=== PATIENT | female | born 2000 | race Caucasian/White ===

== ENCOUNTER 2018-05-26 20:35 | Emergency (ER) | payer OTHER, SELFPAY | END 2018-05-26 21:34 | disposition home or self-care (01) | LOC: ERS 20:35 | DX: Z04.3 Encounter for examination and observation following other accident (principal); W19.XXXA Unspecified fall, initial encounter; Z3A.17 17 weeks gestation of pregnancy ==

== ENCOUNTER 2018-09-02 14:14 | Day surgery (SDC) | payer BC, OTHER ==
[2018-09-02 15:00] VITALS: BP 119/74; TEMP 98.5; BMI 48.4
--- NOTE | 2018-09-02 15:05 | PDOC.EVN ---
Event Note - Event Note Event Note: L&D: History & Physical Time: 1500 Location: Triage age: 18 yo CC: Here for LOF Patient of the [facility] G1 at 32 and 3 weeks...possible leaking X 1 week. Has been on/off 1 week. No CTX. No gush. No sxs. No VB Review of Systems: completed and as above. HX: Treated Chlamydia with neg RYDER Past Med HX: intellectual disability, GDM...no meds Past OB: 1 HR on record 139....full records not here Surgerical HX: none Allergies: none Social: negative tobacco, ETOH, drugs PHYSICAL: BP 119/82, P80s, afebrile, RR 18 unlabored General NAD HEENT neg Skin: negative rashes CCTAB RRR Gravid, soft No homans Pelvic...pending Extremities: negative for pathology NST: 160s, mod variability, no decels. TOCO no ctx Interventions: VP3 GC and Chl SSE NST Assessment/Plan: 18 yo G1 at 32 weeks 3 days with possible prolonged LOF Plan: VP3 GC and Chl SSE NST IF pos for LOF...will need: admit, ABX for latency (amp and erythro IV, then amox and erythro x 5 days; or amp and zmax if erythro not available), sono for EFW/presentation, admit labs, steroids. Patient first eval by Katelyn Hardin, seen by me for SSE...with Katelyn Hardin
--- NOTE | 2018-09-02 15:22 | PDOC.EVN ---
Event Note - Event Note Event Note: SSE performed Time: MDs: Wilfred/Hector No evidence LOF on exam, no LOF with valsalva. Perineum dry. Cough test neg. No VB collected prior GC collected VP3 collected Await test results
[2018-09-02 15:45] LABS: Amnisure Test No Membranes Rupture (No Rupture)
[2018-09-02 15:46] LABS: Amnisure Internal Control QC ACCEPTABLE (ACCEPTABLE)
--- NOTE | 2018-09-02 16:13 | PDOC.EVN ---
Event Note - Event Note Event Note: LABS: Amnsiure is negative VP3 and GC/Chl Will not return today OK for clinic follow up, in 2 days No evidence of LOF or PTL
[2018-09-02 16:51] LABS: Bilirubin Negative (Negative); Blood, Urine Negative (Negative); Clarity TURBID (Clear); Glucose, Urine (Dipstick) Negative (Negative); Leukocyte Small (Negative); Nitrite Negative (Negative); Protein, Urine (Dipstick) 100 mg/dL (Neg-Trace); Specific Gravity, Urine 1.018 (1.002-1.036)
[2018-09-02 16:54] LABS: Bacteria/HPF 4+ HPF (None Seen); Pathc Cast-AUWi Flag 2.04 (0-2.49)
[2018-09-02 17:06] LABS: RBC/HPF 0-3 HPF (0-3)
[2018-09-02 17:08] LABS: Hyaline Casts/LPF 0-3 HYALINE CAST LPF (0-3 Hyaline)
[2018-09-02 17:10] LABS: Urine Culture Reflex No No
--- NOTE | 2018-09-02 17:38 | PDOC.EVN ---
Event Note - Event Note Event Note: Lab check preDSCH: VP3 was pos for BV...will RX with oral flagyl 500mg po BID x 7 days
[2018-09-05 00:46] LABS: Chlamydia by PCR Not Detected (NotDetected); GC by PCR Not Detected (NotDetected)
== END 2018-09-02 16:43 | disposition home or self-care (01) ==
LOC: L&D/OP 14:14 → EDSTATUS 14:22 → L&D/OP 16:43
PROVIDERS: ATTEND Obstetrics & Gynecology
DX: O99.89 Other specified diseases and conditions complicating pregnancy, childbirth and the puerperium (principal); N89.8 Other specified noninflammatory disorders of vagina; O24.419 Gestational diabetes mellitus in pregnancy, unspecified control; O23.593 Infection of other part of genital tract in pregnancy, third trimester; B96.89 Other specified bacterial agents as the cause of diseases classified elsewhere; Z79.899 Other long term (current) drug therapy; O99.343 Other mental disorders complicating pregnancy, third trimester; F79 Unspecified intellectual disabilities; Z88.8 Allergy status to other drugs, medicaments and biological substances; Z3A.32 32 weeks gestation of pregnancy
CPT/HCPCS: 81001; 84112; 87480; 87491; 87510; 87591; 87660

== ENCOUNTER 2018-10-05 23:14 | Day surgery (SDC) | payer BC, OTHER ==
[2018-10-05 23:53] VITALS: BP 105/57; TEMP 97.9; BMI 50.3
--- NOTE | 2018-10-06 00:48 | PDOC.EVN ---
Event Note - Event Note Event Note: Faculty Note NILAM Stephenson Time: 45; 10/06/18 Location: [facility] CC: pelvic presssure HPI: 20 yo G1 at 37 weeks 2 days with vaginal pressure. No CTX, no VB, no LOF. Good FM. Review of systems completed and as per HPI; also noted with past HX slight MR Otherwise no significant HX Vitals: afebrile and normotensive CX: FT NST reactive DX: Discomforts of preg Please see full resident note: I have seen and evaluated the patient.
--- NOTE | 2018-10-06 00:49 | PDOC.LDHP ---
Labor and Delivery H&P Chief complaint: other (pelvic pain) HPI: 18 yo G1 at 37.2 by 10.5 wk sono her for pelvic pain. Has had for the past two weeks but worsened today stating "because baby's head dropped." Patient's history is complicated by mild mental retardation, however patient is able to understand situation and denies VB/LOF or foul smelling discharge. Endorses FM. She denies recent sexual activity. Pelvic pain is focal at pubic symphysis, worse with movement and getting up. No fevers, or rashes. Current gestational age (weeks): 37 (37.2) Due date: 10/21/18 Grav: 1 Current complications: other (glucose intolernace) Current medications: pre- vitamins Allergies/Adverse Reactions: Allergies Allergy/AdvReac Type Severity Reaction Status Date / Time ADHD PATCH Allergy Severe Rash Uncoded 10/05/18 23:55 Social history: none - Physical Exam Vital signs reviewed and normal: yes General: NAD, resting Heart: RRR Lungs: CTAB Abdomen: other (mildly tender over pubic area inguinal pain reproduced with leg bend) FHT: category 1 (reactive, reassuring uterine irritability) - Vaginal Exam cm dilated: 1 Effacement: 0% Station: -3 - OB Labs Blood type: A RH: positive Antibody Screen: negative HIV: negative RPR: unknown HEPSAg: unknown 1 hour GCT: unknown GBS: unknown Rubella: immune - Plan Plan: other (discharge to home) -: 18 yo G1 at 37.2 by 1T sono here for pelvic pain #discomfort during -likely pelvic girdle pain with 3T -FHT: reactive, reassuring w/ uterine irritability -SVE: /high -gave labor precautions, hydrate well -continue routine care at [facility] with Dr. Velasquez #sIUP, term -continue routine care discussed w/ Dr. Young
== END 2018-10-06 01:03 | disposition home or self-care (01) ==
LOC: L&D/OP 23:14
PROVIDERS: ATTEND Student in an Organized Health Care Education/Training Program
DX: O26.893 Other specified pregnancy related conditions, third trimester (principal); R10.2 Pelvic and perineal pain; O99.343 Other mental disorders complicating pregnancy, third trimester; F70 Mild intellectual disabilities; O99.283 Endocrine, nutritional and metabolic diseases complicating pregnancy, third trimester; E74.39 Other disorders of intestinal carbohydrate absorption; Z79.899 Other long term (current) drug therapy; Z88.8 Allergy status to other drugs, medicaments and biological substances; Z3A.37 37 weeks gestation of pregnancy
CPT/HCPCS: 99282

== ENCOUNTER 2018-10-21 21:00 | Inpatient (IN) | payer BC, OTHER ==
[~2018-10-21 21:00] MED LIST: Bupivacaine/Epinephrine 0.25% 30 ML VIAL ONE
--- NOTE | 2018-10-21 21:47 | PDOC.LDHP ---
Labor and Delivery H&P Chief complaint: scheduled induction HPI: 18 y/o @ 39.3wks by 1T sono not c/w LMP presents for scheduled induction Pt reports feeling well, taking her PNV and ASA daily. She is feeling baby move and denies ctx, LOF, abdominal/pelvic pain, VB/VD, or headache. Her glucose checks have been well controlled recently. Current gestational age (weeks): 39 (.3) Due date: 10/25/18 Dating criteria: first trimester ultrasound Grav: 1 Para: 0 OB History Details: moderate MR, morbid obesity, chlamydia-treated, E. coli UTI- treated, A1GDM Current complications: gestational diabetes Abnormal US findings: No Past Medical History: intellectual disability Current medications: pre- vitamins Previous surgical history: none Allergies/Adverse Reactions: Allergies Allergy/AdvReac Type Severity Reaction Status Date / Time ADHD PATCH Allergy Mild Rash Uncoded 10/21/18 22:12 Social history: none - Physical Exam Vital signs reviewed and normal: yes General: NAD Heart: RRR Lungs: nonlabored breathing Abdomen: NTTP Extremeties: trace edema FHT: category 1, variability present (baseline 150, accerlations, no decels) [place] contractions every: 3mins - Vaginal Exam cm dilated: 1 Effacement: 50% Station: -3 - OB Labs Blood type: A RH: positive Antibody Screen: negative HIV: negative RPR: negative HEPSAg: negative 1 hour GCT: positive 3 hour GTT: abnormal GBS: negative Urine drug screen: not done Rubella: immune Additional Labs: H/H: , HbA1c 5.7% - Assessment L&D Assessment: medically indicated induction - Plan Plan: admit to L&D, cervical ripening, labor augmentation if indicated -: Term - GBS negative, epidural desired - downs score of 3 - place cytotec when ctx adequately spaced - repeat cervical exam in 4 hours Addendum - Attending - Attending Attestation Date/Time: 10/22/18 0737 I personally evaluated the patient and discussed the management with Dr. Chow on 10/21/2018 I agree with the History, Examination, Assessment and Plan documented above with any addition or exceptions noted below - 18 yo female @39.3 weeks presents for elective induction of labor. Denies any ctx, LOF. (+) FM. Afebrile VSS. SVE 50%/-3. Category 1 FHTs. [place]- occ ctx. A/P: 1) IUP @39.3 weeks for elective induction of labor. Cytotec placed. Category 1 FHTs. Recheck in 4 hours. 2) Glucose intolerance - all BG within normal during . 3) Intellectual disability
[2018-10-21 22:07] VITALS: BMI 49.7
[2018-10-21] MEDS ORDERED: Ibuprofen 800 MG TAB PO PRN (22:24)
[2018-10-21] MEDS ORDERED: NS / Oxytocin 40 units/1000ml 1,000 ML IV PRN (22:24)
[2018-10-21] MEDS ORDERED: Ondansetron PF 4 MG/2 ML Vial IVP PRN (22:24)
[2018-10-21] MEDS ORDERED: Diphenoxylate HCl/Atropine Tablet PO PRN (22:24)
[2018-10-21] MEDS ORDERED: Methylergonovine 0.2 MG/ML VIAL IM PRN (22:24)
[2018-10-21] MEDS ORDERED: Misoprostol 200 MCG TAB PR PRN (22:24)
[2018-10-21] MEDS ORDERED: Lidocaine 1% (PF) 30 ML VIAL SC PRN (22:24)
[2018-10-21] MEDS ORDERED: Promethazine HCl 25 MG/ML VIAL IM PRN (22:24)
[2018-10-21] MEDS ORDERED: Carboprost 250 MCG/ML AMP IM PRN (22:24)
[2018-10-21] MEDS: Misoprostol 100 MCG TAB VAG SCH (23:04)
[2018-10-21 23:24] LABS: Hemoglobin 10.2 g/dL (12.0-16.0); Mean Corpuscular HGB CONC 31.3 g/dL (32.0-36.0); Mean Corpuscular Hemoglobin 22.8 pg (25.0-35.0); Mean Corpuscular Volume 72.9 fL (78.0-98.0); Mean Platelet Volume 8.4 fL (7.4-10.4); Platelet Count 364 thou/uL (130-400); RBC Distribution Width 14.4 % (11.5-14.5); Red Blood Cell (RBC) Count 4.45 mill/uL (4.00-5.20); White Blood Cell (WBC) Count 12.7 thou/uL (4.8-10.8)
[2018-10-21] MEDS: Lactated Ringer's 1,000 ML IV SCH (23:50)
[2018-10-22 00:10] LABS: Hep B Surf Ag Non-Reactive S/CO (NonReactive); Syphilis Antibody Nonreactive (Nonreactive); Syphilis Antibody Index 0.03 S/CO (<1.00 Non-Reactive)
--- NOTE | 2018-10-22 03:27 | PDOC.LDPN ---
Labor & Delivery Progress Note - Subjective Subjective: comfortable - Objective Vital signs reviewed and normal: yes General: NAD, resting Uterine fundus: non tender Dilation: 1 Effacement: 50% Station: -3 FHT: category 1 (baseline 140, accels present, no decels), variability present [place] contractions every: 2mins - Assessment (1) Current Visit: Yes Status: Acute Plan: continue plan of care -: Term - GBS negative, epidural desired - downs score of 3 - place cytotec when ctx adequately spaced - repeat cervical exam in 4 hours
[2018-10-22] MEDS: Lactated Ringer's 1,000 ML IV SCH ×3 (04:04→23:24)
[2018-10-22] MEDS: Misoprostol 100 MCG TAB VAG SCH (04:04)
--- NOTE | 2018-10-22 08:04 | PDOC.LDPN ---
Labor & Delivery Progress Note - Subjective Subjective: other (complains of back pain, denies feeling contractions) - Objective Vital signs reviewed and normal: yes General: resting Dilation: 1cm Effacement: 50% Station: -3 FHT: category 1, variability present [place] contractions every: not on monitor 2/2 pt movment and positioning Plan: continue plan of care -: Term A- Pt is hungry and desires breakfast. GBS negative, epidural desired. downs score of 3. s/p cytotec x2 P- Will allow pt to eat breakfast. Place third cytotec 2 hours after breakfast - repeat cervical exam in ~ 4 hours Addendum - Attending - Attending Attestation Date/Time: 10/22/18 8971 I personally evaluated the patient and discussed the management with Dr. Dent. I agree with the History, Examination, Assessment and Plan documented above with any addition or exceptions noted below. This is an elective induction in patient whose obstetric course is complicated by obesity and limited cognitive and emotional development. She has been followed by MFM. records reviewed.
--- NOTE | 2018-10-22 11:22 | PDOC.LDPN ---
Labor & Delivery Progress Note - Subjective Subjective: comfortable - Objective Vital signs reviewed and normal: yes General: NAD, resting Dilation: 1 Effacement: 50% Station: -3 FHT: category 1 -: Term - GBS neg, wants epidural, s/p cytotec x2 - SROM while walking around the unit @ 1030 - Starting Pitocin for augmentation - no change to cervical exam Addendum - Attending - Attending Attestation Date/Time: 10/22/18 [id number] I discussed the management with Dr. Hardin this morning. I agree with the History, Examination, Assessment and Plan documented above with any addition or exceptions noted below. SROM. Pitocin is being initiated for induction.
[2018-10-22] MEDS ORDERED: NS w/ Oxytocin 10 units 500 ML IV SCH (11:30)
--- NOTE | 2018-10-22 15:26 | PDOC.LDPN ---
Labor & Delivery Progress Note - Subjective Subjective: comfortable - Objective Vital signs reviewed and normal: yes General: NAD, resting Dilation: 1 Effacement: 90% Station: -1 FHT: variable decelerations (x2), variability present Plan: continue plan of care -: Term A- GBS neg, wants epidural, s/p cytotec x2, now on pit. Showing 2 variable decells otherwise strip is reassuring. SROM while walking around the unit @ 1030 P- re-positioning, use of birthing ball. continue monitoring and recheck in 4 hours
--- NOTE | 2018-10-22 16:59 | PDOC.LDPN ---
Labor & Delivery Progress Note - Subjective Subjective: comfortable - Objective Vital signs reviewed and normal: yes General: NAD -: Term - GBS neg, wants epidural, s/p cytotec x2 - SROM while walking around the unit @ 1030 - Pit at 12, cxns q 2-3, cat 2 mild variability - internal monitors placed 1645 - AROM forebag 1645, /-1 Addendum - Attending - Attending Attestation Date/Time: 10/23/18 3072 I personally evaluated the patient and discussed the management with Dr. Hardin I agree with the History, Examination, Assessment and Plan documented above with any addition or exceptions noted below. I supervised and assisted with internal monitor placement.
--- NOTE | 2018-10-22 21:30 | PDOC.LDPN ---
Labor & Delivery Progress Note - Subjective Subjective: painful contractions - Objective General: NAD, breathing through contractions Uterine fundus: non tender Dilation: 3 Effacement: 50% Station: -2 FHT: category 1 (baseline 140, moderate variability, no decels, accels present) [place] contractions every: 3-4min - Assessment (1) Current Visit: Yes Status: Acute Plan: continue plan of care -: Term - GBS neg, wants epidural, s/p cytotec x2 - SROM while walking around the unit @ 1030 - Pitocin, cxns q 2-3, cat 2 mild variability - internal monitors placed 1645 - AROM forebag 1645, /-1 - repeat exam q4hr Addendum - Attending - Attending Attestation Date/Time: 10/23/18 0013 I personally evaluated the patient and discussed the management with Dr. Chow. I agree with the History, Examination, Assessment and Plan documented above with any addition or exceptions noted below.
[2018-10-22] MEDS ORDERED: Fentanyl 4 mcg/Bup 0.1% Cadd 100 ML ONE (23:12)
[2018-10-23] MEDS ORDERED: Naloxone HCl 0.4 mg/ml Vial IVP PRN ×2 (00:24)
[2018-10-23] MEDS ORDERED: Promethazine HCl 25 MG/ML VIAL IM PRN (00:24)
[2018-10-23] MEDS ORDERED: ePHEDrine/0.9% NaCl/PF SYRINGE 50 mg/10 ml SLOW IVP PRN (00:24)
[2018-10-23] MEDS ORDERED: diphenhydrAMINE 50 MG/ML VIAL IVP PRN (00:24)
[2018-10-23] MEDS ORDERED: Eucerin (Mineral Oil/Petrolatum,White) 30 gm Jar TOP PRN (00:24)
[2018-10-23] MEDS ORDERED: Lactated Ringer's 500 ML IV PRN (00:24)
[2018-10-23] MEDS ORDERED: Ondansetron PF 4 MG/2 ML Vial IVP PRN (00:24)
[2018-10-23] MEDS ORDERED: Communication Order-Pharmacy FS SCH (00:30)
[2018-10-23] MEDS ORDERED: Fentanyl 4 mcg/Bupivacaine 0.1% Cassette 100 ML EPIDURAL SCH (00:30)
--- NOTE | 2018-10-23 01:33 | PDOC.LDPN ---
Labor & Delivery Progress Note - Subjective Subjective: comfortable - Objective Vital signs reviewed and normal: yes General: NAD Uterine fundus: non tender Dilation: 4 Effacement: 75% Station: -2 FHT: category 1 (baseline 150, mod variabilty, accels, no decel ) [place] contractions every: 3mins - Assessment (1) Current Visit: Yes Status: Acute Plan: continue plan of care -: Term - GBS neg, epidural placed, s/p cytotec x2 - SROM while walking around the unit @ 1030 - Pitocin, cxns q 2-3, cat 1 - internal monitors placed 1645 - AROM forebag 1645, /-1 - repeat exam q4hr Addendum - Attending - Attending Attestation Date/Time: 10/23/18 0724 I personally evaluated the patient and discussed the management with Dr. Chow. I agree with the History, Examination, Assessment and Plan documented above with any addition or exceptions noted below.
[2018-10-23] MEDS: Lactated Ringer's 1,000 ML IV SCH (02:53)
--- NOTE | 2018-10-23 05:37 | PDOC.LDPN ---
Labor & Delivery Progress Note - Subjective Subjective: comfortable - Objective Vital signs reviewed and normal: yes General: NAD Uterine fundus: non tender Dilation: 5 Effacement: 90% Station: -2 FHT: category 1 (baseline 150, accels, no decels), variability present [place] contractions every: 2-3 mins - Assessment (1) Current Visit: Yes Status: Acute Plan: continue plan of care -: Term - GBS neg, epidural placed, s/p cytotec x2 - SROM while walking around the unit @ 1030 - Pitocin 12, cxns q 2-3, cat 1 - internal monitors placed 1645 - AROM forebag 1645, /-1 - repeat exam q4hr Addendum - Attending - Attending Attestation Date/Time: 10/23/18 1868 I personally evaluated the patient and discussed the management with Dr. Chow. I agree with the History, Examination, Assessment and Plan documented above with any addition or exceptions noted below.
[2018-10-23] MEDS ORDERED: Fentanyl 4 mcg/Bup 0.1% Cadd 100 ML ONE (07:32)
[2018-10-23] MEDS ORDERED: Fentanyl 100 MCG/2 ML VIAL ONE (10:12)
[2018-10-23] MEDS ORDERED: Bupivacaine 0.25% HCL 30 ML VIAL ONE (10:12)
[2018-10-23] MEDS ORDERED: Bupivacaine 0.5% 10 ML VIAL ONE (10:16)
[2018-10-23] MEDS ORDERED: PHENYLEPHRINE-NS 100 MCG/ML 10 ML SYRINGE ONE (10:49)
[2018-10-23] MEDS ORDERED: NS / Oxytocin 40 units/1000ml 1,000 ML IV SCH (13:58)
[2018-10-23] MEDS ORDERED: Bisacodyl 10 MG SUPP PR PRN (13:58)
[2018-10-23] MEDS ORDERED: Milk Of Magnesia 30 ML UDCUP PO PRN (13:58)
[2018-10-23] MEDS ORDERED: Adacel (T-DAP) 0.5 ML SYRINGE IM ONE (13:58)
[2018-10-23] MEDS: Ampicillin 2 GM in Sodium Chloride 0.9% 100 ML IVPB SCH ×3 (14:57→21:53)
[2018-10-23] MEDS: Ferrous Sulfate 325 MG TAB PO SCH (17:41)
[2018-10-23] MEDS: Acetaminophen 325 MG TAB PO PRN (18:39)
--- NOTE | 2018-10-23 19:07 | OP ---
DATE OF PROCEDURE: 10/23/2018 RESIDENT PHYSICIAN: Dr. Rima Velasquez. PREOPERATIVE DIAGNOSES: 1. Elective induction of labor. 2. Maternal obesity. 3. Persistent category II strip (persistent tachycardia). 4. Maternal tachycardia. 5. Chorioamnionitis. 6. Poor maternal effort, maternal exhaustion. POSTOPERATIVE DIAGNOSES: 1. Term intrauterine , delivered. 2. Maternal obesity. 3. Persistent category II strip (persistent tachycardia). 4. Maternal tachycardia. 5. Chorioamnionitis. 6. Poor maternal effort, maternal exhaustion. 7. Shoulder dystocia, requiring suprapubic pressure, Sofya maneuver, posterior shoulder delivery. 8. Vacuum-assisted vaginal delivery. 9. 4th degree laceration, status post repair. 10. Bilateral vaginal lacerations, status post repair. 11. hemorrhage. INDICATIONS FOR PROCEDURE: This is a 18-year-old, G1, P0, at 39 and 3 weeks, who presented for elective induction of labor on 10/21/2018. The patient had rupture of membranes at approximately 10 a.m. on 10/22/2018. Clear fluid was noted at that time. During this time, strip remained category I. Due to maternal habitus, there was difficulty obtaining heart tones via external monitors. A decision was made to start Pitocin and place internal monitors to better detect contractions and heart tones. This was done at approximately 5 p.m. on 10/22/2018. The patient did well during the course of her labor. However, at approximately 8 a.m. on 10/23 , the patient was noted to be tachycardic and shortly thereafter the started to become tachycardic as well. Considering her risk factors for chorioamnitis and the emergence of maternal and tachycardia antibiotics for chorioamniitis ( Intraamniotic Infection) were ordered. At this point, station was 2+, and the patient was completely dilated and effaced. For approximately 1 to 1-1/2 hours, the patient attempted pushing, and she was able to progress the to the 3+ station. However, the patient reached a point of exhaustion and no longer had effective pushes. At that point, given the persistent tachycardia and maternal exhaustion, the decision was made to proceed with a vacuum-assisted vaginal delivery. The reasons for our recommendation to expedite delivery and risks of vacuum-assisted vaginal delivery were discussed with the patient to include cephalohematoma and possibility of shoulder dystocia. The patient and the patient's adoptive mother agreed to proceed with the vacuum assistance given the situation. The position was noted to be LEAH, and the vacuum was placed at which was felt to be the median flexion point. All maternal tissue was found to be free after application of the vacuum. Vacuum pressure was then applied to "yellow" while awaiting a contraction. With the next contraction the suction was raised to "green," 45 mL of water. Continuous traction was was applied in the usual fashion with steady progress while the patient was instructed to push. No pop-offs were noted until the very end after the delivery of the head, at which point, Dr. Murillo was able to apply downward pressure in an effort to relieve the anterior shoulder. However, shoulder dystocia was encountered. The patient was already in Sofya position, so suprapubic pressure was applied. When downward traction on the head was not successful, Dr. Murillo was able to relieve the posterior arm, and the rest of the body was delivered. left shoulder was anterior. Estimated total time of vacuum application was about 3 minutes. See nurse notes and immediate post delivery note. Estimated time of shoulder dystocia was about 1 minute. The cord gas was sent for analysis, and cord blood was sent for typing. The infant was handed to the mother and stimulated. It was then taken over to the nursery, where the supervisor tank storage was waiting and evaluated the infant. The was found to have Apgars of 8 and 9 at 1 and 5 minutes respectively. After delivery of the infant, the placenta was spontaneously delivered with gentle downward traction and was found to be intact with a three-vessel cord noted. The placenta was sent for pathology. As noted earlier, due to concern for chorioamnionitis, the patient was started on ampicillin and gentamicin. The nursery was notified of the chorioamnionitis diagnosis, and appropriate labs to include CBC and culture were obtained post delivery. Infant also was started on antibiotics. Upon inspection of the vagina, perineum and rectum, there was a 4th degree laceration noted. Digital rectal exam was performed to evaluate extend of rectal involvement. For the repair, anesthesia was called to re-dose her epidural, and Tea was taken to the OR. The tear was cleansed with betadyne and sterile saline. Prior to the 4th degree repair, a right-sided vaginal laceration was repaired to control active bleeding, 3-O vicryl was used in a running manner and 3-O chromic for two figure of eight sutures. Our attention turned to the anal/rectal repair. 3-0 Vicryl was used to reapproximate the rectal and anal mucosa in a running submucosal manner. The internal anal sphincter was then brought together using a 3-0 Vicryl in a running manner. After this was achieved , the external anal sphincter was identified with the help of Dr. Cartagena. The external anal sphincter with fascia was brought together at 12,3,6, and 9o clock positions. This was accomplished using 1-[address] At this point, we turned our attention to the bilateral vaginal lacerations. These were repaired with 3-O vicryl in a running fashion. The remaining perineal tear was then repaired in the usual fashion using a 3-0 Vicryl. The patient tolerated this procedure well. During the procedure, she was noted to have systolic blood pressures in the 80s. She was given ephedrine x2 as well as 2 L bolus of fluid, which bumped her pressures up to the 90s. However, with the amount of the estimated blood loss in the delivery adn that associated with the vaginal laceration, the patient was estimated to have a hemorrhage of 1250 mL. Since the blood pressure was not responding to fluids alone, a decision was made to type and cross 2 units of blood and transfuse the patient. A 4- to 6- hour postop H and H will be obtained to assess status. She will eventually go to for routine recovery/care. We will ensure that she has pain control for her 4th degree laceration and stool softeners to ensure that she has soft bowel movements. The infant went to nursery for routine recovery/care. The infant was noted to have a brachial plexus injury to the left arm and was also noted to have a cephalhematoma due to vacuum application. DRAINS: Olivier to gravity draining clear urine. ESTIMATED BLOOD LOSS: 1250 mL. COMPLICATIONS: Vacuum-assisted vaginal delivery, shoulder dystocia, 4th degree laceration, hemorrhage. Job ID: [id number] [facility]
[2018-10-23] MEDS: Ibuprofen 800 MG TAB PO SCH (21:25)
[2018-10-23] MEDS: Docusate Calcium (SURFAK) 240 MG CAP PO SCH (21:25)
[2018-10-23] MEDS: HYDROcodone/Acetaminophen 5/325 mg Tablet PO PRN (23:42)
[2018-10-24] MEDS: Ampicillin 2 GM in Sodium Chloride 0.9% 100 ML IVPB SCH ×2 (03:38→10:04)
[2018-10-24 03:54] LABS: #Basophils 0.1 thou/uL (0.0-0.2); #Eosinphils 0.2 thou/uL (0.0-0.7); #Lymphocytes 3.3 thou/uL (1.20-3.40); #Monocytes 1.5 thou/uL (0.11-0.59); %Basophils 0.4 % (0.0-1.0); %Eosinophils 0.9 % (0.0-10.0); %Lymphocytes 18.3 % (28.0-48.0); %Monocytes 8.3 % (0.0-4.0); %Neutrophils 72.1 % (31.0-61.0); Hemoglobin 8.1 g/dL (12.0-16.0); Mean Corpuscular HGB CONC 32.2 g/dL (32.0-36.0); Mean Corpuscular Hemoglobin 24.9 pg (25.0-35.0); Mean Corpuscular Volume 77.5 fL (78.0-98.0); Mean Platelet Volume 7.8 fL (7.4-10.4); Platelet Count 215 thou/uL (130-400); RBC Distribution Width 16.4 % (11.5-14.5); Red Blood Cell (RBC) Count 3.26 mill/uL (4.00-5.20); White Blood Cell (WBC) Count 18.1 thou/uL (4.8-10.8)
[2018-10-24] MEDS: HYDROcodone/Acetaminophen 5/325 mg Tablet PO PRN (03:59)
[2018-10-24] MEDS: Ibuprofen 800 MG TAB PO SCH ×3 (06:08→21:28)
--- NOTE | 2018-10-24 08:25 | PDOC.PP ---
Post Progress Note Post Day #: 1 Subjective: Pt states she feels well and that pain is much better than yesterday though she has residual back aches. Reports minimal bleeding, +flatus, no BM (no urge yet) , no ambulation. Olivier is in place. No complaints or concerns at this time. PO intake tolerated: yes Flatus: yes Ambulation: no Vital Signs (12 hours) Temp Pulse Pulse Resp BP BP Pulse Ox 10/24/18 04:00 98.1 F 94 20 102/52 L 95 10/23/18 23:40 98.2 F 95 18 103/58 L 10/23/18 21:17 99.0 F 98 18 101/55 L Weight Weight 123.377 kg - Physical Examination General: NAD Cardiovascular: no m/r/g Respiratory: clear to auscultation bilaterally, non-labored breathing Abdominal: + bowel sounds, no distention Neurological: no gross focal deficits Psychiatric: A&Ox3, normal affect Result Diagrams: 10/25/18 06:25 Additional Labs: Post Labs Blood Type A POSITIVE 10/22/18 01:25 Hep Bs Antigen Non-Reactive S/CO (NonReactive) 10/21/18 23:19 (1) care and examination Code(s): Z39.2 - ENCOUNTER FOR ROUTINE FOLLOW-UP Status: Acute (2) hemorrhage Code(s): O72.1 - OTHER IMMEDIATE HEMORRHAGE Status: Acute (3) Chorioamnionitis Code(s): O41.1290 - CHORIOAMNIONITIS, UNSP TRIMESTER, NOT APPLICABLE OR UNSP Status: Acute (4) Fourth degree laceration of perineum during delivery, Code(s): O70.3 - FOURTH DEGREE PERINEAL LACERATION DURING DELIVERY Status: Acute (5) Obesity Code(s): E66.9 - OBESITY, UNSPECIFIED Status: Acute - Assessment/Plan 18yo who delivered via vacuum assisted vaginal delivery at 0951 on 2018 at 39.5w EGA that was complicated by shoulder dystocia, 4th degree lac, and PPH Post A- Overall doing well. pt reports good pain control, has not ambulated yet, tolerating PO intake, no BM, +flatus, minimal bleeding, breast feeding/bottle feeding breast milk P- continue stool softeners -encourage ambulation as tolerated -monitor I/Os Anemia 2/2 PPH A- Hgb trend from 10.2-->8 and is s/p 2u PRBC. Pt is asymptomatic P- monitor symptoms of anemia -monitor daily H/H Intra-amniotic infection A- tachycardic in final 2-3 hours of labor, WBC 12-->18 P- continue amp and gent 4th degree lac A- good pain control as stated above, bleeding minimal P- will check rectal tone and sutures at rounds maternal obesity A- MD aware P- will in house counsel healthy diet -f/u pcp Addendum - Attending - Attending Attestation Date/Time: 10/24/18 6431 I personally evaluated the patient and discussed the management with Dr. Dent and Dr. Velasquez I agree with the History, Examination, Assessment and Plan documented above with any addition or exceptions noted below. 18 yo female s/p complicated VAVD at 39.5 wks on 10/23/18 at 0951 Patient doing well. Pain managed with PO meds. Positive flatus. No incontinence. Lochia appropriate. Voiding well. VS reviewed. Labs reviewed. NAD. Fundus firm. RRR. No murmur. CTAB. Rectal tone normal. No disruption of rectal mucosa. No evidence of dehiscence or infection. Hemrrhoid present. Nonthrombosed. s/p VAVD: Routine care. OASIS with 4th degree laceration: Repaired. No pp complications at this time. Hemorrhoid noted on exam today. Will follow up with MD at time of repair to re- evaluate to make sure present and not new. Unsure on exam today 2/2 patient discomfort if external vs internal. Nonthrombosed. Contine bowel regiment. No incontinence. Ok to d/c antibx. Add topical pain meds. Suspected IAI: Empirically treated due to ROM 24 hours, maternal and tachycardia. Patient with epidural and unable to evaluate for fundal tenderness during labor. Treated intrapartum with antibx and continued for 24 hours pp. No fever in pp period. Fundus nontender. Stop antibx. Placenta path pending but likely positive. [place] dystocia with brachial plexus injury: Improving. BMI 49: Encourage breast feeding and lifestyle modifications. PPH s/p 2 units pRBC: Asymptomatic. VSS. Still anemic on repeat. Will give IV iron to decrease chances of constipation. macrosomia Glucose intolerance: Do to other risk factors would follow up DM screening with PCP\ Mild intellectual disability: Unsure if NIPT done. Seen and followed up by MFM. Routine care. D/c Olivier and antibx. [place]
[2018-10-24] MEDS ORDERED: Milk Of Magnesia 30 ML UDCUP PO SCH (09:00)
[2018-10-24] MEDS: Polyethylene Glycol 3350 17 GM Packet PO SCH (10:03)
[2018-10-24] MEDS: Ferrous Sulfate 325 MG TAB PO SCH ×2 (10:03→17:17)
[2018-10-24] MEDS: Docusate Calcium (SURFAK) 240 MG CAP PO SCH ×2 (10:03→21:28)
[2018-10-24] MEDS: Milk Of Magnesia 30 ML UDCUP PO PRN (10:03)
[2018-10-24] MEDS: Misoprostol 100 MCG TAB VAG SCH ×2 (11:18→11:19)
[2018-10-24] MEDS ORDERED: Benzocaine-Menthol 82.5 ML CAN TOP PRN (11:59)
[2018-10-24] MEDS ORDERED: Iron, Sodium Ferric Gluconate 125 MG in Sodium Chloride 0.9% 100 ML IVPB SCH (12:30)
[2018-10-24 16:56] LABS: Actual Bicarbonate (HCO3a) 22.6 mEq/L (22-28); Analyzer IN Cardio OR; Base Excess (BEa) -3.3 mEq/L (-2.0 to +3.0)
[2018-10-24] MEDS: Hydrocortisone/Pramoxine (Proctofoam HC) 10 GM BOX PR SCH (21:27)
[2018-10-24] MEDS: Acetaminophen 325 MG TAB PO PRN (23:31)
[2018-10-25] MEDS: Ibuprofen 800 MG TAB PO SCH ×2 (04:58→14:01)
--- NOTE | 2018-10-25 05:54 | PDOC.PP ---
Post Progress Note Post Day #: 2 Subjective: Patient doing really well. No significant overnight events. Patient reports that she is not in a significant amount of pain. She has voided, but has yet to have a bowel movement. She has been using the topical anesthetics for her 4th degeree repair and states those work very well for her. She is bonding well with her infant. Patient is inquiring about getting to go home. PO intake tolerated: yes Flatus: yes Ambulation: yes Vital Signs (12 hours) Temp Pulse Resp BP BP Pulse Ox 10/25/18 04:50 97.8 F 71 18 101/60 10/25/18 00:00 98.1 F 81 20 111/70 10/24/18 20:00 98.1 F 80 20 118/59 L 98 Weight Weight 123.377 kg - Physical Examination General: NAD Cardiovascular: RRR Deviation from normal: systolic murmur Respiratory: clear to auscultation bilaterally, non-labored breathing Abdominal: + bowel sounds, lochia (like that of period), no distention Fundus firm & at: below umbilicus Neurological: no gross focal deficits Psychiatric: A&Ox3, normal affect Result Diagrams: 10/25/18 06:25 Additional Labs: Post Labs Blood Type A POSITIVE 10/22/18 01:25 Hep Bs Antigen Non-Reactive S/CO (NonReactive) 10/21/18 23:19 (1) Vacuum extraction, delivered, current hospitalization Code(s): O66.5 - ATTEMPTED APPLICATION OF VACUUM EXTRACTOR AND FORCEPS Status : Acute (2) Chorioamnionitis Code(s): O41.1290 - CHORIOAMNIONITIS, UNSP TRIMESTER, NOT APPLICABLE OR UNSP Status: Acute (3) Fourth degree laceration of perineum during delivery, Code(s): O70.3 - FOURTH DEGREE PERINEAL LACERATION DURING DELIVERY Status: Acute (4) Obesity Code(s): E66.9 - OBESITY, UNSPECIFIED Status: Acute (5) care and examination Code(s): Z39.2 - ENCOUNTER FOR ROUTINE FOLLOW-UP Status: Acute (6) hemorrhage Code(s): O72.1 - OTHER IMMEDIATE HEMORRHAGE Status: Acute - Assessment/Plan 18yo who delivered via vacuum assisted vaginal delivery at 0951 on 2018 at 39.5w EGA that was complicated by shoulder dystocia, 4th degree lac, and PPH Routine care -Overall doing well -Good pain control with topical anesthetics -No BM yet; continue stool softeners -Encourage ambulation as tolerated -Monitor I/Os -Repeat H&H pending Anemia 2/2 PPH -Hgb trend from 10.2-->8 and is s/p 2u PRBC -Pt is asymptomatic -Monitor symptoms of anemia -AM H&H pending Intra-amniotic infection -Tachycardic in final 2-3 hours of labor, WBC 12-->18 -s/p Amp & Gent -AM CBC pending -Patient asymptomatic 4th degree lac -Good pain control as stated above, bleeding minimal -Dr. Murillo and Dr. Velasquez to assess laceration repair and rectal tone on 10/25 at appx 4:30 PM -Patient has yet to have BM -Continue stool softeners maternal obesity -Dietary and lifestyle changes advised -F/U with PCP for management dispo: Anticipate additional night's stay in hospital vs. discharge home after patient stools/has rectum examined. Addendum - Attending - Attending Attestation Date/Time: 10/25/18 5182 I personally evaluated the patient and discussed the management with Dr. Velasquez I agree with the History, Examination, Assessment and Plan documented above with any addition or exceptions noted below. 18 yo female s/p complicated VAVD at 39.5 wks on 10/23/18 at 0951 POD/PPD#2 Much improved. Ambulating. Voiding well. Mild lochia. No incontinence. +Bm without complications. VS reviewed. Labs reviewed. s/p VAVD: Routine care. Possible d/c later today if continues to do so well. Appointment scheduled for Monday at [facility]. OASIS with 4th degree laceration (involved anal epithelium per report): Repaired. No pp complications at this time. s/p BM. Contine bowel regiment. No incontinence. Pain controlled. Precautions discussed. Confirmed IAI: Treated intrapartum with antibx and continued for 24 hours pp. No fever in pp period. Fundus nontender. Placenta path positive. Sholder dystocia with brachial plexus injury: Improving. BMI 49: Encourage breast feeding and lifestyle modifications. PPH s/p 2 units pRBC: Asymptomatic. VSS. s/p iron infusion. Will need repeat CBC in 1 month to monitor. macrosomia Glucose intolerance: Due to other risk factors would follow up DM screening with PCP. Mild intellectual disability: CM following. Has good support at home. Routine care. Possible d/c to home this afternoon. Mc
[2018-10-25] MEDS ORDERED: Bisacodyl 5 MG TAB PO SCH (06:15)
[2018-10-25 07:03] LABS: #Basophils 0.1 thou/uL (0.0-0.2); #Eosinphils 0.4 thou/uL (0.0-0.7); #Lymphocytes 3.4 thou/uL (1.20-3.40); #Neutrophils 8.7 thou/uL (1.40-6.50); %Basophils 0.6 % (0.0-1.0); %Eosinophils 3.1 % (0.0-10.0); %Lymphocytes 25.3 % (28.0-48.0); %Monocytes 7.5 % (0.0-4.0); %Neutrophils 63.5 % (31.0-61.0); Hemoglobin 8.7 g/dL (12.0-16.0); Mean Corpuscular HGB CONC 31.1 g/dL (32.0-36.0); Mean Corpuscular Hemoglobin 24.5 pg (25.0-35.0); Mean Corpuscular Volume 78.8 fL (78.0-98.0); Mean Platelet Volume 8.5 fL (7.4-10.4); Platelet Count 235 thou/uL (130-400); RBC Distribution Width 16.7 % (11.5-14.5); Red Blood Cell (RBC) Count 3.55 mill/uL (4.00-5.20); White Blood Cell (WBC) Count 13.6 thou/uL (4.8-10.8)
[2018-10-25] MEDS: Milk Of Magnesia 30 ML UDCUP PO PRN (08:22)
[2018-10-25] MEDS: Docusate Calcium (SURFAK) 240 MG CAP PO SCH (08:22)
[2018-10-25] MEDS: Ferrous Sulfate 325 MG TAB PO SCH (08:22)
[2018-10-25] MEDS: Polyethylene Glycol 3350 17 GM Packet PO SCH (08:22)
[2018-10-25 08:25] VITALS: BP 88/50; TEMP 98.4
[2018-10-25] MEDS: Hydrocortisone/Pramoxine (Proctofoam HC) 10 GM BOX PR SCH (08:31)
--- NOTE | 2018-10-25 08:46 | PDOC.EVN ---
Event Note - Event Note Event Note: Dr Camacho requested I perform a rectal exam. Inspection revealed repair intact, no erythema or induration noted. External hemorrhoid noted. This was tender to palpation. No rectal mass appreciated with MAJOR. Anal tone is intact but diminished.
== END 2018-10-25 17:55 | disposition home or self-care (01) | DRG 768 ==
LOC: L&D 21:16 → 3SW 10-23 14:24
PROVIDERS: ADMIT Family Medicine; ATTEND Family Medicine
PROC: 10E0XZZ Delivery of Products of Conception, External Approach (ICD-10-PCS; principal; 2018-10-23)
PROC: 0DQP0ZZ Repair Rectum, Open Approach (ICD-10-PCS; 2018-10-23)
PROC: 3E0P7VZ Introduction of Hormone into Female Reproductive, Via Natural or Artificial Opening (ICD-10-PCS; 2018-10-23)
PROC: 10907ZC Drainage of Amniotic Fluid, Therapeutic from Products of Conception, Via Natural or Artificial Opening (ICD-10-PCS; 2018-10-23)
PROC: 3E033VJ Introduction of Other Hormone into Peripheral Vein, Percutaneous Approach (ICD-10-PCS; 2018-10-23)
PROC: 30233N1 Transfusion of Nonautologous Red Blood Cells into Peripheral Vein, Percutaneous Approach (ICD-10-PCS; 2018-10-23)
DX: O99.214 Obesity complicating childbirth (principal); Z37.0 Single live birth; O41.1230 Chorioamnionitis, third trimester, not applicable or unspecified; E66.01 Morbid (severe) obesity due to excess calories; O24.420 Gestational diabetes mellitus in childbirth, diet controlled; O66.0 Obstructed labor due to shoulder dystocia; O70.3 Fourth degree perineal laceration during delivery; Z3A.39 39 weeks gestation of pregnancy; O72.1 Other immediate postpartum hemorrhage; O99.02 Anemia complicating childbirth; D64.9 Anemia, unspecified
CPT/HCPCS: 36415; 36430; 51702; 82805; 85025; 85027; 86780; 86850; 86900; 86901; 87340; 88307; J0290; J1200; J1580; J2001; J2405; J2590; J2916; J3010; J3490; P9016; S0020

== ENCOUNTER 2019-07-09 20:12 | Emergency (ER) | payer BC, OTHER ==
[2019-07-09 20:28] LABS: Bilirubin Negative (Negative); Blood, Urine Negative (Negative); Clarity Clear (Clear); Glucose, Urine (Dipstick) Normal (Negative); Leukocyte 75 Leu/uL (Negative); Nitrite Negative (Negative); Protein, Urine (Dipstick) 20 mg/dL (Neg-Trace); RBC/HPF 0-3 HPF (0-3); Urobilinogen Normal mg/dL (Less than 2)
[2019-07-09 20:29] LABS: Bacteria/HPF 1+ HPF (None Seen)
[2019-07-09 20:36] LABS: #Basophils 0.1 thou/uL (0.0-0.2); #Eosinphils 0.3 thou/uL (0.0-0.7); #Lymphocytes 5.1 thou/uL (1.20-3.40); #Monocytes 0.8 thou/uL (0.11-0.59); #Neutrophils 6.8 thou/uL (1.40-6.50); %Basophils 0.6 % (0.0-1.0); %Lymphocytes 39.1 % (21.0-51.0); %Monocytes 6.2 % (0.0-10.0); %Neutrophils 52.1 % (42.0-75.0); Hemoglobin 13.2 g/dL (12.0-16.0); Mean Corpuscular HGB CONC 32.7 g/dL (32.0-36.0); Mean Corpuscular Hemoglobin 26.7 pg (27.0-31.0); Mean Corpuscular Volume 81.5 fL (78.0-98.0); Mean Platelet Volume 7.3 fL (7.4-10.4); Platelet Count 402 thou/uL (130-400); RBC Distribution Width 12.3 % (11.5-14.5); Red Blood Cell (RBC) Count 4.94 mill/uL (4.20-5.40)
[2019-07-09 20:57] LABS: ALT (SGPT) 18 U/L (8-55); AST (SGOT) 15 U/L (5-34); Albumin 4.2 g/dL (3.5-5.0); Alkaline Phosphatase 92 U/L (40-110); Anion Gap 14 mmol/L (10-20); BUN (Urea Nitrogen) 8 mg/dL (7.0-18.7); Bilirubin, Total 0.2 mg/dL (0.2-1.2); Calc. Creatinine Clearance 0 mL/min (70-130); Calcium 9.8 mg/dL (7.8-10.44); Carbon Dioxide 23 mmol/L (22-29); Chloride 103 mmol/L (98-107); Estimated GFR-MDRD Greater than 90; Globulin 3.3 g/dL (2.4-3.5); Glucose 97 mg/dL (70-105); Potassium 4.1 mmol/L (3.5-5.1); Protein, Total 7.5 g/dL (6.0-8.3); Sodium 136 mmol/L (136-145)
--- NOTE | 2019-07-09 23:23 | ULT ---
Exam: Transabdominal pelvic ultrasound HISTORY: Lower abdominal pain. Beta hCG is 102,365.15. No report of pelvic bleeding TECHNIQUE: Transabdominal imaging of the gravid uterus performed. Ovaries are interrogated with salma darcy, color flow, Doppler imaging and spectral waveform analysis FINDINGS: Uterus: No myometrial masses. Uterus measures 10.8 x 6.6 x 8.0 cm. Within the endometrium, there is a gestational sac, yolk sac and pole. [place]-rump length is 2.11 cm corresponding to gestational age of 8 weeks 5 days. heart tones wi th a rate of 162 bpm No subchorionic hemorrhage Right ovary has a normal echotexture, measuring 3.3 x 2.6 x 2.6 cm. Left ovary is not appreciated. No significant fluid in the left adnexa or the remainder the pelvis. Ovarian Doppler: Vascular flow to the right ovary. Impression: Single intrauterine gestation with heart tones. Gestational age by crown-rump length is 8 weeks 5 days. Transcribed Date/Time: 07/10/2019 11:55 PM
[2019-07-09] MEDS ORDERED: Ondansetron ODT 4 MG TAB ONE (23:53)
[2019-07-10] MEDS ORDERED: Acetaminophen 500 MG TAB ONE (00:07)
[2019-07-11 00:14] LABS: Chlamydia by PCR Not Detected (NotDetected); GC by PCR Not Detected (NotDetected)
== END 2019-07-10 00:17 | disposition home or self-care (01) ==
LOC: ERS 20:12
DX: O23.41 Unspecified infection of urinary tract in pregnancy, first trimester (principal); O24.911 Unspecified diabetes mellitus in pregnancy, first trimester; Z3A.09 9 weeks gestation of pregnancy
CPT/HCPCS: 36415; 76856; 80053; 81003; 81015; 84702; 85025; 86900; 86901; 87086; 87480; 87491; 87510; 87591; 87660; 93976; Q0162

== ENCOUNTER 2019-08-12 15:37 | Emergency (ER) | payer BC, OTHER ==
[2019-08-12 17:24] LABS: #Basophils 0.1 thou/uL (0.0-0.2); #Eosinphils 0.3 thou/uL (0.0-0.7); #Lymphocytes 3.9 thou/uL (1.20-3.40); #Monocytes 0.7 thou/uL (0.11-0.59); #Neutrophils 7.5 thou/uL (1.40-6.50); %Basophils 0.6 % (0.0-1.0); %Eosinophils 2.7 % (0.0-10.0); %Lymphocytes 31.3 % (21.0-51.0); %Monocytes 5.4 % (0.0-10.0); Hemoglobin 13.6 g/dL (12.0-16.0); Mean Corpuscular HGB CONC 33.1 g/dL (32.0-36.0); Mean Corpuscular Hemoglobin 28.2 pg (27.0-31.0); Mean Corpuscular Volume 85.2 fL (78.0-98.0); Mean Platelet Volume 8.2 fL (7.4-10.4); Platelet Count 331 thou/uL (130-400); RBC Distribution Width 12.8 % (11.5-14.5); Red Blood Cell (RBC) Count 4.83 mill/uL (4.20-5.40); White Blood Cell (WBC) Count 12.5 thou/uL (4.8-10.8)
--- NOTE | 2019-08-12 17:42 | ULT ---
ULTRASOUND OBSTETRICAL COMPLETE: DATE: 08/12/2019 HISTORY: 19-year-old female with vaginal bleeding. FINDINGS: number: salcido lie: Cephalic Maternal cervix: Not well visualized Placenta: Posterior. Cannot determine whether or not there is placenta previa. No obvious placental a bruption. Amniotic fluid volume: Subjectively within normal limits heart rate: 152 bpm anatomy not evaluated biometry: Biparietal diameter (BPD): 2.5 cm 14 w 1 d Head circumference (HC): 9.6 cm 14 w 3 d Abdominal circumference (AC): 8.0 cm 14 w 2 d Femur length (FL): 1.4 cm 14 w 1 d Average ultrasound age (AUA): 14 w 1 d Estimated date of delivery (STACY): 02/09/2020 IMPRESSION: 1) Live very early 2nd trimester intrauterine gestation. 2) Estimated gestational age of 14 weeks, 1 days 3) cephalic lie.
[2019-08-12 18:20] LABS: Bilirubin Negative (Negative); Blood, Urine Negative (Negative); Clarity Clear (Clear); Glucose, Urine (Dipstick) Normal (Negative); Leukocyte Negative Leu/uL (Negative); Nitrite Negative (Negative); Protein, Urine (Dipstick) 30 mg/dL (Neg-Trace); RBC/HPF 0-3 HPF (0-3); Squamous Epithelial 0-3 HPF (0-3); WBC/HPF 0-3 HPF (0-3)
[2019-08-12 18:31] LABS: Bacteria/HPF 1+ HPF (None Seen)
== END 2019-08-12 19:30 | disposition home or self-care (01) ==
LOC: ERS 15:37
DX: O20.9 Hemorrhage in early pregnancy, unspecified (principal); O23.42 Unspecified infection of urinary tract in pregnancy, second trimester; O24.419 Gestational diabetes mellitus in pregnancy, unspecified control; O99.342 Other mental disorders complicating pregnancy, second trimester; F60.0 Paranoid personality disorder; Z3A.14 14 weeks gestation of pregnancy
CPT/HCPCS: 36415; 76815; 81003; 81015; 84702; 85025; 86900; 86901

== ENCOUNTER 2020-02-05 05:16 | Inpatient (IN) | payer BC, OTHER ==
--- NOTE | 2020-01-28 19:34 | ULT ---
BIOPHYSICAL PROFILE: Date: )01/28/2020 HISTORY: Atypical variables. FINDINGS: Amniotic fluid index is calculated at 20.8. Fetus is vertex in presentation. Placenta is anterior. biophysical profile score is 8 of a possible 8. heart rate is 143 beats/minute. IMPRESSION: biophysical profile score is 8 of a possible 8. POS: OFF
--- NOTE | 2020-01-28 21:03 | PDOC.FPROB ---
FMR OB H&P: HPI - History of Present Illness Chief Complaint: contractions History of Present Illness: 19 yo at 38.1 who was found to be jacobo during [facility]. Cervix was checked and was 2/50/-3 at that time.. Patient was sent over for monitoring and BPP. Patient is scheduled for C section on 02/04. Brisa reports she is feeling the contractions in her back. She has not eaten or drank anything today because she was waiting until after her appointment to do so. She denies any headache, vision changes, CP, or SOB. She is feeling baby move and denies any LOF or vaginal bleeding. 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 with first - Surgical History Sx History: vaginal delivery 10/23/2018 with 4th degree laceration - Social History Social History: Denies tobacco, alcohol or drug use - Family History Family History: No significant family history FMR OB H&P: Medications - Current Home Medications: Medication Instructions Recorded Confirmed Type Vits96/Iron Fum/Folic 1 each PO 01/28/20 History [ Tablet] Allergies/Adverse Reactions: Allergies Allergy/AdvReac Type Severity Reaction Status Date / Time ADHD PATCH Allergy Mild Rash Uncoded 01/28/20 16:39 FMR OB H&P: ROS - Review of Systems General: denies: fever/chills, fatigue Eyes: denies: vision changes, double vision ENT: denies: nasal congestion, rhinorrhea, sore throat Cardiovascular: denies: chest pain, palpitation, edema Respiratory: denies: cough, congestion, shortness of breath Gastrointestinal: denies: abdominal pain, nausea, vomiting, diarrhea, constipation Genitourinary (Female): reports: contractions. denies: dysuria, vaginal discharge, vaginal pain, vaginal bleeding Integumentary: reports: itching, rash FMR OB H&P: Vital Signs - Heart Tones Baseline: 140 Variability: moderate Acceleration: present Deceleration: absent Category: category 1 [place] contractions every: 2 minutes FMR OB H&P: Physical Exam - Physical Exam General: NAD, awake, alert and oriented HEENT: normocephalic and atraumatic, EOMI, no scleral icterus, grossly normal vision, grossly normal hearing Neck: FROM Heart: RRR, no murmurs/rubs/gallops, pulses present, no edema General: CTAB, no respiratory distress, good air movement, no rales/rhonchi, no wheezing, no retractions Abdomen: gravid Musculoskeletal: FROM in all four extremities Neurological: sensation to pain,touch and proprioception grossly normal Deviation from normal: erythematous diffuse rash on abdomen and legs, with excoriations Psychiatric: intact recent and remote memory, normal mood and affect - Pelvic Exam SVE: /-3 @ 2030 FMR OB H&P: Results - Labs Lab results: BPP: 01/24 KIA: 20cm FMR OB H&P: A/P Discussion: Date/Time: 01/28/20 2101 19 yo at 38.1 complaining of contractions. Labor Rule Out - Jacobo every 2 minutes on toco - Received 1L bolus LR - SVE /-3 at 2030, unchanged from 1400 check /-3 - BPP 01/24, KIA - 20cm - Discussed with eliu Lees to discharge home This H&P was discussed with Dr. Fernandez and Dr. Pandya who agree with the above documentation and plan.
[2020-02-05 05:49] VITALS: BMI 52.3
[2020-02-05] MEDS: Lactated Ringer's 1,000 ML IV SCH ×3 (06:00→18:35)
[2020-02-05] MEDS ORDERED: hydrALAZINE 20 MG/ML VIAL SLOW IVP PRN ×2 (06:09→11:29)
[2020-02-05] MEDS ORDERED: Ondansetron PF 4 MG/2 ML Vial IVP PRN ×2 (06:09→07:23)
[2020-02-05] MEDS ORDERED: Promethazine HCl 25 MG/ML VIAL IM PRN ×2 (06:09→07:23)
[2020-02-05] MEDS ORDERED: Bicitra 30 ML UDCUP PO SCH (06:15)
[2020-02-05] MEDS ORDERED: CEFAZOLIN 2 GM in Premix Bag 1 BAG IVPB SCH (06:15)
--- NOTE | 2020-02-05 06:15 | PDOC.FPROB ---
FMR OB H&P: HPI - History of Present Illness Chief Complaint: PLTCS Indentification: 19 yo at 39.5 wga History of Present Illness: Pt is here today for pLTCS 2/2 to complications during her first delivery. Her first delivery was complicated by shoulder dystocia, 4th degree laceration requiring OR repair, and PPH. Today the pt reports feeling well. She denies ROGERS, SOB, chest pain, edema, abdominal pain other than contractions, LOF, vaginal bleeding, dysuria. Endorses movement. 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 with first - Surgical History Sx History: vaginal delivery 10/23/2018 with 4th degree laceration - Social History Social History: Denies tobacco, alcohol or drug use - Family History Family History: No significant family history FMR OB H&P: Medications - Current Home Medications: Medication Instructions Recorded Confirmed Type No Known 02/05/20 02/05/20 History Allergies/Adverse Reactions: Allergies Allergy/AdvReac Type Severity Reaction Status Date / Time ADHD PATCH Allergy Mild Rash Uncoded 02/05/20 05:39 FMR OB H&P: ROS - Review of Systems General: denies: fever/chills Eyes: denies: vision changes, double vision ENT: denies: nasal congestion, rhinorrhea Cardiovascular: denies: chest pain, edema Respiratory: denies: cough, shortness of breath Gastrointestinal: reports: abdominal pain (with contractions). denies: nausea, vomiting Genitourinary (Female): denies: dysuria, hematuria, vaginal discharge, vaginal bleeding Musculoskeletal: denies: pain, swelling Neurologic: denies: headache Integumentary: reports: itching, lesions Endocrine: reports: polyuria Hematologic/Lymphatic: denies: prolonged or excessive bleeding Psychological: denies: depression, anxiety FMR OB H&P: Vital Signs - Maternal Vital signs: Vital Signs - First Documented Temp Pulse Resp BP Pulse Ox 98.7 F 131 H 20 102/57 L 99 02/05/20 05:38 02/05/20 05:38 02/05/20 05:38 02/05/20 05:38 02/05/20 05:38 FMR OB H&P: Physical Exam - Physical Exam General: NAD, awake, alert and oriented HEENT: normocephalic and atraumatic, PERRLA, grossly normal vision, grossly normal hearing Neck: supple, FROM Heart: normal S1/S2, no murmurs/rubs/gallops Deviation from normal: Tachycardic General: CTAB, no respiratory distress Musculoskeletal: FROM in all four extremities Neurological: sensation to pain,touch and proprioception grossly normal Deviation from normal: Multiple lesions present, possibly insect bites Lymphatic: no unusual bruising or bleeding, no purpura, no petechia Psychiatric: intact recent and remote memory, normal mood and affect - Pelvic Exam Vulva: normal hair distribution, appropriate noemi stage Presentation: Cephalic with posterior placenta FMR OB H&P: A/P - Problem List (1) Term Current Visit: Yes Status: Acute Code(s): Z34.90 - ENCNTR FOR SUPRVSN OF NORMAL , UNSP, UNSP TRIMESTER Discussion: Date/Time: 02/05/20 0614 19 yo who presents for pLTCS at 39.5 wga tIUP at 39.5 wga - pLTCS scheduled for 0730 this am 2/2 to previous traumatic - ancef 1 dose before, 2 after - fetus: 150 baseline, mod variability, no decels - placed on continuous external monitoring, limited by body habitus - U/S confirmed cephalic presentation with posterior placenta - IV fluids running - GBS negative Tachycardia - asymptomatic, fluids running DVT PPx: SCDs with Lovenox 12hrs post-op This H&P was discussed with Dr. Camacho who agrees with the above documentation and plan. Addendum - Attending - Attending Attestation Date/Time: 02/05/20 0600 I personally evaluated the patient and discussed the management with Dr. Cuello I agree with the History, Examination, Assessment and Plan documented above with any addition or exceptions noted below. 19 yo 39.5 wks here for PLTCS due to history of complicated delivery with prior . Patient doing well but anxious due to last delivery and now requiring delivery. +FM. Denies LOF, VB, discharge. Reports having trouble staying hydrated. FHT reactive. Bedside sono: posterior placenta. Not low lying. Cephalic. - sIUP: IOB labs reviewed. Apos. Anatomy reviewed. GBS negative. - Hx of traumatic delivery (chorio, 4th degree, shoulder dystocia, PPH, PPD): Scheduled for PLTCS. R/B/A discussed. Questions answered. Consents signed. Will proceed with planned delivery. - BMI 52: Multiple surgical risk. Addressed with patient. Will repeat antibx dosing. Lovenox to start this evening for VTE ppx. Wound vac to be placed after skin closure. Follow up closely in outpatient setting due to risk. - Short IPI - hx of chlamydia - Proteinuria: Repeat cath urine pro/cr ratio. Send for UA and culture. Follow up to determine if gestational or otherwise. Monitor closely. Proceed to OR when ready. Mc
[2020-02-05 06:30] LABS: Hemoglobin 10.6 g/dL (12.0-16.0); Mean Corpuscular HGB CONC 30.4 g/dL (32.0-36.0); Mean Corpuscular Hemoglobin 22.1 pg (27.0-31.0); Mean Corpuscular Volume 72.5 fL (78.0-98.0); Mean Platelet Volume 8.7 fL (7.4-10.4); Platelet Count 364 thou/uL (130-400); RBC Distribution Width 14.5 % (11.5-14.5); Red Blood Cell (RBC) Count 4.81 mill/uL (4.20-5.40)
[2020-02-05] MEDS ORDERED: MORPHINE 5 MG/10 ML PF VIAL ONE (06:58)
[2020-02-05] MEDS ORDERED: EPHEDRINE 25 MG/5 ML SYRINGE ONE ×2 (06:59→08:42)
[2020-02-05] MEDS ORDERED: Oxytocin 10 UNITS/ML VIAL ONE (06:59)
[2020-02-05 07:03] LABS: HBSAg Index 0.34 S/CO (0-0.99); Hep B Surf Ag Non-Reactive S/CO (NonReactive); Syphilis Antibody Nonreactive (Nonreactive); Syphilis Antibody Index 0.03 S/CO (<1.00 Non-Reactive)
[2020-02-05] MEDS ORDERED: PHENYLEPHRINE-NS 100 MCG/ML 10 ML SYRINGE ONE (07:07)
[2020-02-05] MEDS ORDERED: Ketorolac Tromethamine 30 MG/ML VIAL IVP PRN (07:23)
[2020-02-05] MEDS ORDERED: Naloxone HCl 0.4 mg/ml Vial IVP PRN ×2 (07:23)
[2020-02-05] MEDS ORDERED: Promethazine HCl 25 MG SUPP PR PRN (07:23)
[2020-02-05] MEDS ORDERED: Naloxone HCl 0.4 mg/ml Vial IV PRN (07:23)
[2020-02-05] MEDS ORDERED: Communication Order-Pharmacy FS SCH (07:30)
[2020-02-05 08:01] LABS: ALT (SGPT) 10 U/L (8-55); AST (SGOT) 11 U/L (5-34); Albumin 3.3 g/dL (3.5-5.0); Alkaline Phosphatase 190 U/L (40-110); Anion Gap 16 mmol/L (10-20); BUN (Urea Nitrogen) 5 mg/dL (7.0-18.7); Bilirubin, Total 0.4 mg/dL (0.2-1.2); Calc. Creatinine Clearance 309 mL/min (70-130); Calcium 8.7 mg/dL (7.8-10.44); Carbon Dioxide 20 mmol/L (22-29); Chloride 105 mmol/L (98-107); Estimated GFR-MDRD Greater than 90; Globulin 3.2 g/dL (2.4-3.5); Glucose 89 mg/dL (70-105); Potassium 4.5 mmol/L (3.5-5.1); Protein, Total 6.5 g/dL (6.0-8.3); Sodium 136 mmol/L (136-145)
[2020-02-05] MEDS ORDERED: Ondansetron PF 4 MG/2 ML Vial ONE ×2 (08:17→08:26)
[2020-02-05] MEDS ORDERED: Methylergonovine 0.2 MG/ML VIAL ONE (08:41)
[2020-02-05] MEDS ORDERED: Midazolam HCl 2 mg/2 ml Vial ONE ×2 (09:02→09:43)
[2020-02-05] MEDS ORDERED: Fentanyl 100 MCG/2 ML VIAL ONE (09:43)
[2020-02-05] MEDS ORDERED: diphenhydrAMINE 50 MG/ML VIAL ONE (10:02)
[2020-02-05] MEDS ORDERED: Methylergonovine 0.2 MG/ML VIAL IM SCH (11:29)
[2020-02-05] MEDS ORDERED: Morphine 4 MG/ML VIAL SLOW IVP PRN (11:29)
[2020-02-05] MEDS ORDERED: HYDROcodone/Acetaminophen 5/325 mg Tablet PO PRN (11:29)
[2020-02-05] MEDS: CEFAZOLIN 2 GM in Premix Bag 1 BAG IVPB SCH ×2 (11:45→23:41)
[2020-02-05 11:54] LABS: Creatinine, Urine 236.65 mg/dL (47-110)
--- NOTE | 2020-02-05 13:51 | PDOC.OPDEL ---
OB Operative/Delivery Note Delivery Dr/Surgeon: Miriam Romero DO; Beverly Jackson MD Assist: Jeimy Camacho MD; Genia Cuello MD Pre-Delivery Diagnosis: scheduled section Weeks gestation: 39 (39.5 weeks) Anesthesia: spinal - Findings A Sex: male Weight: 4.394 kg (9 pounds 11 oz) - 1 min: 7 - 5 min: 8 (required CPAP in OR, switch to High Flow O2 in nursery ) - Additional Findings/Plan Placenta delivered: manual removal findings: low transverse hysterotomy without extension, normal uterus, normal tubes, normal ovaries Estimated blood loss: 850 mL Compilations/Other Findings: Date of Procedure: 02/05/2020, 814 Resident Primary Surgeon: Miriam Romero DO; Beverly Jackson MD Director Of Informatics Surgeon: Genia Cuello MD Attending Surgeon: Jeimy Camacho MD Procedure: Primary low transverse caesarean section due to history of complicated delivery Preoperative Diagnosis: 1) Term intrauterine 2) BMI 53 3) Hx of shoulder dystocia 4) Hx of 4th degree laceration 5) Hx of PPH 6) Hx of Chlamydia 7) Hx of macrosomia 8) Hx of GDM 9) Hx of chorioamnonitis Postoperative Diagnosis: 1) Term intrauterine 2) BMI 53 3) Hx of shoulder dystocia 4) Hx of 4th degree laceration 5) Hx of PPH 6) Hx of Chlamydia 7) Hx of macrosomia 8) Hx of GDM 9) Hx of chorioamnonitis 10) Uterine Atony 11) Ligation/tear of right inferior epigastric vessel Anesthesia: spinal Indications: The patient is a 19 year old female at 39.5 weeks gestation who presents for a primary scheduled due to history of delivery complications. Procedure in Detail: Risks, benefits, and alternatives were explained to the patient. Questions were answered. Consents were signed. The patient was taken to the operating room and spinal anesthesia was initiated. Pre-operative antibiotics, Cefazolin 2 gram IV, was given after placement of spinal. She was placed in the supine position with a left, lateral tilt. Abdomen was prepped and draped in usual sterile fashion. A Pfannenstiel incision was made with a scalpel and carried down to the level of the fascia which was sharply nicked on both sides. The fascial layer was then cut and was extended bilaterally with curved Hurst scissors. The inferior and superior edges of the cut fascial edges were elevated with Kimo clamps and the underlying rectus muscles were sharply and bluntly dissected free. The recti were divided digitally and retracted manually. Inferior epigastric vessel torn during dissection. Attempted to use Bovie for hemostasis. Unsuccessful. Ligated with 2-0 Plain. Peritoneum was entered bluntly and retracted manually. Chau O was placed for retraction. A low transverse incision was made with the scalpel and the uterus was entered bluntly. The hysterotomy was extended manually in a cranial-caudal direction. Amniotic sac was still intact and was ruptured using Deena clamp. Clear fluid was seen. The was noted to be vertex position but left upper extremity exited the hysterotomy first. Caution was taken. Infant delivered in vertex position without complications. The remainder of the body was easily delivered by fundal pressure. Mouth and nares were bulb suctioned. Cord clamped and cut. Grossly normal male was handed to waiting nurse. Cord blood was obtained. Placenta was manually extracted, found to be intact with 3 vessel cord and discarded. The uterus was externalized and curetted with a dry lap. Mild uterine atony was noted. Resolved with pitocin and methergine. A full thickness closure was done with a running locking 0- Monocryl suture. Following this hemostasis was largely noted but minimal bleeding noted along serosa. Arixtra placed. Hemostasis noted. The uterus was internalized and the hysterotomy was again noted to be hemostatic. The peritoneum was closed with a running non-locking 2-0 Plain gut suture. Recti were evaluated. Hemostatic. The fascia was closed with a running non-locking PDS suture. The subcutaneous tissue was irrigated and a few bleeders were heat cauterized. The subtaneous layer was then closed with simple interrupted 2-0 Plain gut suture. The skin was approximated with giuliano and a wound vac was placed. All counts were correct. The patient tolerated the procedure well and was taken to the recovery room in stable condition. Quantitative Blood Loss: 850 ml Complications: Laceration/tear of right inferior epigastric artery requiring 1 figure of 8 suture using 2-0 plain gut, good hemostasis acheived. Mild uterine atony requiring administration of pitocin and methergine. Serosal edge bleeding resolved with Arixtra. Specimens: Cord blood sent to lab for blood type Findings: Grossly normal male infant with Apgars of 7 and 8. Mild respiratory distress following delivery requiring use of CPAP in OR. Transferred to NICU. Grossly normal placenta with 3 vessel cord discarded. Drains: Olivier to gravity draining clear urine Attending Note: I was present and participated in the above mentioned procedure. Agree with documentation above. Minor complications as above. Wound vac placed. Monitor closely on pp. Repeat antibx. Start Lovenox this evening. ABrayMD Post delivery plan: routine recovery
[2020-02-05] MEDS: Ibuprofen 800 MG TAB PO SCH ×2 (13:52→21:43)
[2020-02-05] MEDS ORDERED: hydrOXYzine 25 MG TAB PO PRN (14:44)
[2020-02-05] MEDS: diphenhydrAMINE 50 MG/ML VIAL IVP PRN (16:15)
[2020-02-05] MEDS ORDERED: Lactated Ringer's 1,000 ML IV SCH (16:30)
--- NOTE | 2020-02-05 16:34 | PDOC.BPN ---
<Genia Cuello - Last Filed: 02/05/20 16:47> - Brief Progress Note Post-op progress note: Pt reports that she is feeling well. She is tolerating PO intake of clear fluids. She rates her current pain at a 3/10 and says that it is well controlled. The pt still has a najera in with 900 cc of very concentrated urine. She is not yet ambulating and is not yet passing gas. PE: Low BP of 86/53 with recheck of 111/59, P: 105, R: 12, Temp: afebrile Wound vac in place and dry. Unable to palpate the fundus due to body habitus. Appropriately tender to palpation. No respiratory distress. A/P 19 G2 now P2 s/p pLTCS 2/2 to medically traumatic vaginal delivery in first resulting in shoulder dystocia, 4th degree laceration requiring OR repair, and PPH. s/p pLTCS -QBL: 850 post op -pain well controlled, tolerating clear liquids -urine in najera bag very concentrated, will bolus with 1000 ml followed by 120 mls/hr -will continue to monitor her BP DVT ppx: SCDs, Lovenox scheduled for 2100 <Jeimy Camacho - Last Filed: 02/05/20 17:31> - Brief Progress Note Attending Note: Agree with documentation above. Continue to monitor closely. Lovenox to start later. Repeat dose of antibx. Mc
[2020-02-05] MEDS ORDERED: Polyethylene Glycol 3350 17 GM Packet PO PRN (16:59)
[2020-02-05 17:22] LABS: Bilirubin Negative (Negative); Blood, Urine Negative (Negative); Clarity Clear (Clear); Glucose, Urine (Dipstick) Normal (Negative); Ketone, Urine 20 mg/dL (Negative); Leukocyte 500 Leu/uL (Negative); Nitrite Negative (Negative); Protein, Urine (Dipstick) 10 mg/dL (Neg-Trace); RBC/HPF 0-3 HPF (0-3); Squamous Epithelial 0-3 HPF (0-3); Urobilinogen Normal mg/dL (Less than 2); WBC/HPF Greater than 50 HPF (0-3)
[2020-02-05 17:25] LABS: Bacteria/HPF 1+ HPF (None Seen)
[2020-02-05] MEDS ORDERED: Enoxaparin Sodium 80 MG/0.8 ML SYRINGE SC SCH (21:00)
[2020-02-05] MEDS: Ferrous Sulfate 325 MG TAB PO SCH (21:44)
[2020-02-06] MEDS: Lactated Ringer's 1,000 ML IV SCH ×2 (00:06→13:32)
[2020-02-06] MEDS: Ibuprofen 800 MG TAB PO SCH ×3 (04:35→22:17)
[2020-02-06] MEDS: diphenhydrAMINE 50 MG/ML VIAL IVP PRN (05:22)
[2020-02-06 06:17] LABS: Hemoglobin 8.4 g/dL (12.0-16.0); Mean Corpuscular HGB CONC 30.7 g/dL (32.0-36.0); Mean Corpuscular Hemoglobin 22.6 pg (27.0-31.0); Mean Corpuscular Volume 73.7 fL (78.0-98.0); Mean Platelet Volume 8.7 fL (7.4-10.4); Platelet Count 283 thou/uL (130-400); RBC Distribution Width 14.6 % (11.5-14.5); White Blood Cell (WBC) Count 14.9 thou/uL (4.8-10.8)
[2020-02-06 06:38] LABS: ALT (SGPT) 7 U/L (8-55); AST (SGOT) 17 U/L (5-34); Albumin 2.4 g/dL (3.5-5.0); Alkaline Phosphatase 131 U/L (40-110); Anion Gap 13 mmol/L (10-20); BUN (Urea Nitrogen) Less than 4 mg/dL (7.0-18.7); Bilirubin, Total 0.5 mg/dL (0.2-1.2); Calc. Creatinine Clearance 325 mL/min (70-130); Calcium 8.2 mg/dL (7.8-10.44); Carbon Dioxide 23 mmol/L (22-29); Chloride 102 mmol/L (98-107); Estimated GFR-MDRD Greater than 90; Globulin 2.7 g/dL (2.4-3.5); Glucose 115 mg/dL (70-105); Potassium 3.8 mmol/L (3.5-5.1); Protein, Total 5.1 g/dL (6.0-8.3); Sodium 134 mmol/L (136-145)
--- NOTE | 2020-02-06 06:40 | PDOC.OBPPN ---
FMR OB PN: Subj - Interval History Day: PP day: 1 CC: scheduled pLTCS 19 yo G2 now P2 s/p pLTCS Interval hx: Pt reports that she is feeling well this morning. Tolerating PO, ambulating to the bathroom. Pain is well controlled, worse with ambulation. Did not wear her SCDs overnight. Discussed the importance of wearing them and that she should only have them off when waling the halls and to and from the bathroom. Not yet passing gas. FMR OB PN: Obj - Maternal Vital signs: BP: 105/57 HR: 107 RR: 18 Tmax: 98.3 - Urine output I&O: 02/04/20 02/05/20 02/06/20 06:59 06:59 06:59 Intake Total 1880 Output Total 4612 Balance -2732 FMR OB PN: Exam - Physical Exam General: NAD HEENT: normocephalic and atraumatic, grossly normal vision, grossly normal hearing Neck: supple, FROM Heart: RRR, normal S1/S2, no murmurs/rubs/gallops, pulses present, no edema General: CTAB, no respiratory distress, no rales/rhonchi, no wheezing, no retractions Abdomen: soft Deviation from normal: ATTP, decreased bowel sounds Musculoskeletal: FROM in all four extremities Neurological: sensation to pain,touch and proprioception grossly normal Deviation from normal: Multiple skin lesions, present prior to delivery : bandage intact, appropriately tender Lymphatic: no unusual bruising or bleeding, no purpura, no petechia Psychiatric: intact recent and remote memory, good judgement and insight, normal mood and affect FMR OB PN: Data - Labs Lab results: Laboratory Results - last 24 hr 02/05/20 02/05/20 02/05/20 06:16 06:16 06:16 WBC RBC Hgb Hct MCV MCH MCHC RDW Plt Count MPV Sodium Potassium Chloride Carbon Dioxide Anion Gap BUN Creatinine Estimated GFR (MDRD) Glucose Calcium Total Bilirubin AST ALT Alkaline Phosphatase Serum Total Protein Albumin Globulin Albumin/Globulin Ratio Urine Color Urine Clarity Urine pH Ur Specific [place] Urine Protein Urine Glucose (UA) Urine Ketones Urine Blood Urine Nitrite Urine Bilirubin Urine Urobilinogen Ur Leukocyte Esterase Urine RBC Urine WBC Ur Squamous Epith Cells Urine Bacteria Hyaline Casts Urine Osmolality U Random Total Protein Urine Creatinine Syphilis IgG/IgM Ab Nonreactive Hep Bs Antigen Non-Reactive Blood Type A POSITIVE Antibody Screen NEGATIVE Crossmatch See Detail 02/05/20 02/05/20 02/05/20 06:16 09:30 09:30 WBC RBC Hgb Hct MCV MCH MCHC RDW Plt Count MPV Sodium 136 Potassium 4.5 Chloride 105 Carbon Dioxide 20 L Anion Gap 16 BUN 5 L Creatinine 0.59 L Estimated GFR (MDRD) Greater than 90 Glucose 89 Calcium 8.7 Total Bilirubin 0.4 AST 11 ALT 10 Alkaline Phosphatase 190 H Serum Total Protein 6.5 Albumin 3.3 L Globulin 3.2 Albumin/Globulin Ratio 1.0 L Urine Color Urine Clarity Urine pH Ur Specific [place] Urine Protein Urine Glucose (UA) Urine Ketones Urine Blood Urine Nitrite Urine Bilirubin Urine Urobilinogen Ur Leukocyte Esterase Urine RBC Urine WBC Ur Squamous Epith Cells Urine Bacteria Hyaline Casts Urine Osmolality 728 U Random Total Protein 396 H Urine Creatinine 236.65 H Syphilis IgG/IgM Ab Hep Bs Antigen Blood Type Antibody Screen Crossmatch 02/05/20 02/06/20 02/06/20 16:20 05:46 05:46 WBC 14.9 H RBC 3.70 L Hgb 8.4 L Hct 27.2 L MCV 73.7 L MCH 22.6 L MCHC 30.7 L RDW 14.6 H Plt Count 283 MPV 8.7 Sodium 134 L Potassium 3.8 Chloride 102 Carbon Dioxide 23 Anion Gap 13 BUN Less than 4 L Creatinine 0.56 L Estimated GFR (MDRD) Greater than 90 Glucose 115 H Calcium 8.2 Total Bilirubin 0.5 AST 17 ALT 7 L Alkaline Phosphatase 131 H Serum Total Protein 5.1 L Albumin 2.4 L Globulin 2.7 Albumin/Globulin Ratio 0.9 L Urine Color [place] Urine Clarity Clear Urine pH 6.0 Ur Specific [place] 1.020 Urine Protein 10 Urine Glucose (UA) Normal Urine Ketones 20 A Urine Blood Negative Urine Nitrite Negative Urine Bilirubin Negative Urine Urobilinogen Normal Ur Leukocyte Esterase 500 A Urine RBC 0-3 Urine WBC Greater than 50 A Ur Squamous Epith Cells 0-3 Urine Bacteria 1+ A Hyaline Casts 0-3 Urine Osmolality U Random Total Protein Urine Creatinine Syphilis IgG/IgM Ab Hep Bs Antigen Blood Type Antibody Screen Crossmatch FMR OB PN: A/P - Problem List (1) Term Status: Acute Code(s): Z34.90 - ENCNTR FOR SUPRVSN OF NORMAL , UNSP, UNSP TRIMESTER Discussion: 19 G2 now P2 s/p pLTCS 2/2 to medically traumatic vaginal delivery in first resulting in shoulder dystocia, 4th degree laceration requiring OR repair, and PPH. s/p pLTCS -QBL: 850 post op (now 1024) -pain well controlled, tolerating PO, will advance diet -will continue to monitor her BP, asymptomatic -encouraged ambulation -s/p bolus and IV fluids, will SL now -s/p antibiotics Asymptomatic Bacteriuria -denies dysuria, frequency -UA with 500 LE and 1+ bacteria -cx pending -with not treat Proteinuria -Likely 2/2 to bacteriuria -renal U/S scheduled for today DVT ppx: Lovenox and SCDs Dispo: possibly discharge home tomorrow Addendum - Attending - Attending Attestation Date/Time: 02/06/20 [id number] I personally evaluated the patient and discussed the management with Dr. Cuello I agree with the History, Examination, Assessment and Plan documented above with any addition or exceptions noted below. PPD/POD#1 Doing well. Encouraged ambulation. Continue SCDs and Lovenox. Antibx completed x 24 hours (3 doses). Proteinuria workup pending but possibly related to bacteruria. US today. Mc
[2020-02-06] MEDS: Ferrous Sulfate 325 MG TAB PO SCH ×2 (08:43→20:55)
[2020-02-06] MEDS: HYDROcodone/Acetaminophen 5/325 mg Tablet PO PRN ×2 (08:48→16:59)
--- NOTE | 2020-02-06 13:00 | ULT ---
Bilateral renal ultrasound CLINICAL INDICATION: Proteinuria one day ago. COMPARISON: None FINDINGS: Right kidney: There is no evidence of a renal mass, renal calculus, or hydronephrosis. The right kidn ey measures 12.3 cm x 5.9 cm. Left kidney: There is no evidence of a renal mass, renal calculus, or hydronephrosis. The left kidney measures 13.6 cm x 5.7 cm. Urinary bladder: Incompletely distended but grossly within normal limits for the degree of distention . Small amount of free fluid is seen adjacent to the inferior aspect right hepatic lobe IMPRESSION: 1. No evidence of hydronephrosis. No renal cortical thinning is seen. 2. Urinary bladder incompletely distended but grossly within normal limits for the degree of distenti on. 3. Small amount of ascites adjacent to the inferior right hepatic lobe.
[2020-02-06] MEDS: Docusate 100 MG CAP PO PRN (20:55)
[2020-02-06] MEDS: Simethicone Chewable 80 MG TAB PO PRN (20:55)
[2020-02-06] MEDS ORDERED: Enoxaparin Sodium 40 MG/0.4 ML SYRINGE SC SCH (21:00)
[2020-02-06] MEDS: Enoxaparin Sodium 80 MG/0.8 ML SYRINGE SC SCH (21:07)
[2020-02-07] MEDS: Ibuprofen 800 MG TAB PO SCH ×3 (06:05→21:46)
--- NOTE | 2020-02-07 07:32 | PDOC.OBPPN ---
FMR OB PN: Subj - Interval History Day: PP day: 2 CC: scheduled pLTCS 19 yo G2 now P2 s/p pLTCS Interval hx: Tolerating PO, passing gas, ambulating, pain well controlled. Would like to go home today. FMR OB PN: Obj - Maternal Vital signs: BP: 103/59 HR: 104 RR: 16 Tmax: 98.4 Pox: 97% on RA - Urine output I&O: 02/06/20 02/07/20 02/08/20 06:59 06:59 06:59 Intake Total 1880 1360 Output Total 4642 2112 Balance -7851 -465 FMR OB PN: Exam - Physical Exam General: NAD, awake, alert and oriented HEENT: normocephalic and atraumatic, grossly normal hearing, normal nasal mucosa Neck: supple, FROM Heart: RRR, normal S1/S2, no murmurs/rubs/gallops General: CTAB, no respiratory distress, good air movement Abdomen: soft, bowel sound present Deviation from normal: ATTP Musculoskeletal: FROM in all four extremities Neurological: sensation to pain,touch and proprioception grossly normal : bandage intact, no erythema, no drainage, appropriately tender Psychiatric: intact recent and remote memory, good judgement and insight, normal mood and affect FMR OB PN: A/P - Problem List (1) Term Status: Acute Code(s): Z34.90 - ENCNTR FOR SUPRVSN OF NORMAL , UNSP, UNSP TRIMESTER Discussion: 19 G2 now P2 s/p pLTCS 2/2 to medically traumatic vaginal delivery in first resulting in shoulder dystocia, 4th degree laceration requiring OR repair, and PPH. s/p pLTCS -QBL: 850 post op (now 1024) -pain well controlled, tolerating PO, passing gas, ambulating -consider removing wound vac today -s/p bolus and IV fluids, will SL now -s/p antibiotics Asymptomatic Bacteriuria -denies dysuria, frequency -UA with 500 LE and 1+ bacteria -cx: no growth at 24 hrs -pt s/p 3 doses Ancef Proteinuria -Likely 2/2 to bacteriuria -renal U/S normal DVT ppx: Lovenox and SCDs Dispo: dc home today with f/u in 1 week Addendum - Attending - Attending Attestation Date/Time: 02/07/20 1022 I personally evaluated the patient and discussed the management with Dr. Cuello I agree with the History, Examination, Assessment and Plan documented above with any addition or exceptions noted below. POD/PPD#2 Now ambulating. Pain largely controlled. Continue lovenox and SCDs. Encourage ambulation. Will continue to monitor. Likely d/c in AM. Mc
[2020-02-07] MEDS: Docusate 100 MG CAP PO PRN (08:39)
[2020-02-07] MEDS: Ferrous Sulfate 325 MG TAB PO SCH ×2 (08:39→21:46)
[2020-02-07] MEDS: Enoxaparin Sodium 80 MG/0.8 ML SYRINGE SC SCH (21:44)
[2020-02-07] MEDS: Simethicone Chewable 80 MG TAB PO PRN (21:46)
[2020-02-08] MEDS: Ibuprofen 800 MG TAB PO SCH (05:41)
--- NOTE | 2020-02-08 06:23 | PDOC.OBPPN ---
FMR OB PN: Subj - Interval History Day: PP day: 3 CC: scheduled pLTCS 19 yo G2 now P2 s/p pLTCS Interval hx: Tolerating PO, passing gas, ambulating, pain well controlled with ibuprofen FMR OB PN: Obj - Maternal Vital signs: BP: 109/62 HR: 83 RR: 18 Tmax: 98.4 Pox: 97% on RA - Urine output I&O: 02/06/20 02/07/20 02/08/20 06:59 06:59 06:59 Intake Total 1880 1360 720 Output Total 4607 4795 Balance -0101 -029 297 - Pain Management Intervention: oral medication FMR OB PN: Exam - Physical Exam General: NAD, awake, alert and oriented HEENT: grossly normal vision, grossly normal hearing Neck: supple, FROM Heart: RRR, normal S1/S2 General: CTAB, no respiratory distress Abdomen: soft Deviation from normal: ATTP Neurological: sensation to pain,touch and proprioception grossly normal : bandage intact, appropriately tender Psychiatric: normal mood and affect FMR OB PN: A/P - Problem List (1) Term Current Visit: Yes Status: Acute Code(s): Z34.90 - ENCNTR FOR SUPRVSN OF NORMAL , UNSP, UNSP TRIMESTER Discussion: 19 G2 now P2 s/p pLTCS 2/2 to medically traumatic vaginal delivery in first resulting in shoulder dystocia, 4th degree laceration requiring OR repair, and PPH. s/p pLTCS -QBL: 850 post op (now 1024) -pain well controlled with oral medications, tolerating PO, passing gas, ambulating -consider removing wound vac at discharge -s/p bolus and IV fluids, will SL now -s/p antibiotics Asymptomatic Bacteriuria -denies dysuria, frequency -UA with 500 LE and 1+ bacteria -cx: no growth at 48 hrs -with not treat since pt is asymptomatic Proteinuria -Likely 2/2 to bacteriuria -renal U/S normal DVT ppx: Lovenox and SCDs Dispo: dc home today; pt has f/u appt scheduled on 02/13
[2020-02-08 08:47] VITALS: BP 110/66; TEMP 99
[2020-02-08] MEDS: Ferrous Sulfate 325 MG TAB PO SCH (08:50)
[2020-02-08] MEDS: Docusate 100 MG CAP PO PRN (08:50)
== END 2020-02-08 13:10 | disposition home or self-care (01) | DRG 787 ==
LOC: L&D-LIB 05:16 → L&D 08:41 → 3SE 13:29
PROVIDERS: ADMIT Family Medicine; ATTEND Family Medicine
PROC: 10D00Z1 Extraction of Products of Conception, Low, Open Approach (ICD-10-PCS; principal; 2020-02-05)
PROC: 04QH0ZZ Repair Right External Iliac Artery, Open Approach (ICD-10-PCS; 2020-02-05)
PROC: 0W3G0ZZ Control Bleeding in Peritoneal Cavity, Open Approach (ICD-10-PCS; 2020-02-05)
DX: O34.211 Maternal care for low transverse scar from previous cesarean delivery (principal); O71.5 Other obstetric injury to pelvic organs; O72.1 Other immediate postpartum hemorrhage; I97.52 Accidental puncture and laceration of a circulatory system organ or structure during other procedure; Z68.43 Body mass index [BMI] 50.0-59.9, adult; R82.71 Bacteriuria; O99.89 Other specified diseases and conditions complicating pregnancy, childbirth and the puerperium; Y83.8 Other surgical procedures as the cause of abnormal reaction of the patient, or of later complication, without mention of misadventure at the time of the procedure; Z3A.39 39 weeks gestation of pregnancy; Z37.0 Single live birth; Z88.8 Allergy status to other drugs, medicaments and biological substances; O99.214 Obesity complicating childbirth; E66.9 Obesity, unspecified
CPT/HCPCS: 36415; 51702; 76770; 76819; 80053; 81001; 82570; 83935; 84156; 85027; 86780; 86850; 86900; 86901; 87086; 87340; J0690; J1200; J1650; J1885; J2210; J2250; J2274; J2405; J2590; J3010

== ENCOUNTER 2022-07-18 16:47 | Emergency (ER) | payer BC, OTHER ==
[2022-07-18 18:24] LABS: Bacteria/HPF 2+ HPF (None Seen); Bilirubin Negative (Negative); Blood, Urine 3+ (Negative); Clarity Turbid (Clear); Glucose, Urine (Dipstick) Normal (Negative); Ketone, Urine Negative (Negative); Leukocyte Negative Leu/uL (Negative); Nitrite Negative (Negative); Protein, Urine (Dipstick) 200 mg/dL (Neg-Trace); RBC/HPF Greater than 50 HPF (0-3); Specific Gravity, Urine 1.025 (1.002-1.036); Urobilinogen Normal mg/dL (Less than 2); pH, Urine 5.5 (5.0-9.0)
[2022-07-18] MEDS ORDERED: Ketorolac Tromethamine 30 MG/ML VIAL ONE (21:43)
[2022-07-18 22:58] LABS: Pregnancy Test - Urine (BHCG) Negative (Negative); Pregu Control Background? CLEAR/WHITE (CLR/WHITE); Pregu Control Bar Appear? YES (CONTROL BAR); Specific Gravity 1.024 (1.002-1.036)
== END 2022-07-18 22:12 | disposition home or self-care (01) ==
LOC: ERS 16:47
DX: N92.6 Irregular menstruation, unspecified (principal); N93.9 Abnormal uterine and vaginal bleeding, unspecified
CPT/HCPCS: 76856; 81003; 81015; 81025; 87086; 96372; J1885